=== PATIENT | male | born 1975 | race Two or more races ===

== ENCOUNTER → 2016-12-31 | Outpatient (CLI) | payer OTHER | END | disposition home or self-care (01) | LOC: CT 09:16 | DX: J98.11 Atelectasis (principal); I70.0 Atherosclerosis of aorta; I51.7 Cardiomegaly; M47.894 Other spondylosis, thoracic region; R91.1 Solitary pulmonary nodule | CPT/HCPCS: 71250 ==

== ENCOUNTER → 2017-03-29 | Outpatient (CLI) | payer OTHER | END | disposition home or self-care (01) | LOC: CT 12:27 | DX: R91.1 Solitary pulmonary nodule (principal); I10 Essential (primary) hypertension | CPT/HCPCS: 71250 ==